=== PATIENT | female | born 1975 | race Caucasian/White ===

== ENCOUNTER → 2016-09-23 | Outpatient (CLI) | payer OTHER | LOC: FIMAGING 12:09 | PROVIDERS: ATTEND Nurse Practitioner Women's Health | DX: N63 Unspecified lump in breast (principal) | CPT/HCPCS: G0204 ==

== ENCOUNTER 2016-10-08 11:24 | Emergency (ER) | payer OTHER ==
[2016-10-08 11:32] VITALS: BP 108/60; PULSE 80; RESP 18; TEMP 98.4; O2SAT 99
[2016-10-08] MEDS ORDERED: RABIES IMMUNE GLOBULIN 300 UNIT/2 ML VIAL IM ONE (12:30)
[2016-10-08] MEDS ORDERED: RABIES VACC, HUMAN DIPLOID/PF 2.5 UNIT VIAL (RABAVERT) IM ONE (12:30)
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
== END 2016-10-08 13:24 | disposition home or self-care (01) ==
DX: Z20.3 Contact with and (suspected) exposure to rabies (principal); Z23 Encounter for immunization

== ENCOUNTER 2016-10-11 11:40 | Emergency (ER) | payer OTHER ==
[2016-10-11 12:00] VITALS: BP 100/58; PULSE 69; RESP 18; TEMP 98.2; O2SAT 100
[2016-10-11] MEDS ORDERED: RABIES VACC, HUMAN DIPLOID/PF 2.5 UNIT VIAL (RABAVERT) IM ONE (12:56)
--- NOTE | 2016-10-11 13:08 | EDPHY ---
H & P Time Seen by Provider: 10/11/16 13:06 HPI/ROS: Chief Complaint: Patient presents to the ED requesting rabies vaccine HPI: Patient presents to the ED for her 2nd rabies shot. The patient had a bat exposure. She has no acute complaints. She is scheduled to see Infectious Disease for follow-up for her 3rd and 4th doses. REVIEW OF SYSTEMS: Neuro: no headache, numbness, weakness Musculoskeletal: as above Skin: no abrasion or lacerations Smoking Status: Never smoked Physical Exam: General: No acute distress Skin: No evidence of erythema or allergic reaction from prior rabies vaccination Constitutional: Initial Vital Signs Temperature (C) 36.8 C 10/11/16 11:58 Heart Rate 69 10/11/16 11:58 Respiratory Rate 18 10/11/16 11:58 Blood Pressure 100/58 L 10/11/16 11:58 O2 Sat (%) 100 10/11/16 11:58 O2 Delivery Mode Room Air Allergies/Adverse Reactions: No Known Allergies Allergy (Verified 10/11/16 11:58) Home Medications: Medication Instructions Recorded No Medications [NO HOME 06/23/11 MEDICATIONS] MDM/Departure - Depart Disposition: Home, Routine, Self-Care Clinical Impression: Need for rabies vaccination Condition: Good Instructions: Rabies Vaccine (ED) Additional Instructions: 1. Follow up as scheduled with infectious disease for your 3rd and 4th rabies vaccine. Referrals: TRAVIS LEWIS [Primary Care Provider] - As per Instructions
== END 2016-10-11 13:16 | disposition home or self-care (01) ==
DX: Z20.3 Contact with and (suspected) exposure to rabies (principal); Z23 Encounter for immunization

== ENCOUNTER → 2016-10-12 | Outpatient (CLI) | payer OTHER ==
[~2016-10-12] MED LIST: BUPIVACAINE 0.5% 10 ML SDV ONE; LIDO/EPI 1% **Not for Epidural 20 ML MDV ONE; LIDOCAINE 1% 300 MG/30 ML SDV ONE; THROMBIN (BOVINE) 5,000 UNIT VIAL TP ONE
[2016-10-21 12:24] LABS: ACCESSION # HR17-41887; INTERPRETATION See Comments
== END ==
LOC: FIMAGING 07:16
PROVIDERS: ATTEND Nurse Practitioner Women's Health
PROC: 0HBT3ZX Excision of Right Breast, Percutaneous Approach, Diagnostic (ICD-10-PCS; principal; 2016-10-12)
DX: C50.911 Malignant neoplasm of unspecified site of right female breast (principal)